=== PATIENT | male | born 1995 | race Caucasian/White ===

== ENCOUNTER → 2016-11-19 | Outpatient (CLI) | payer MEDICAID ==
[2016-11-19 17:58] LABS: ABSOLUTE BASOPHILS # (AUTO) 0.1 10^3/uL (0.0-0.2); ABSOLUTE EOSINOPHILS # (AUTO) 0.3 10^3/uL (0.0-0.6); ABSOLUTE LYMPHOCYTES (AUTO) 2.4 10^3/uL (0.5-4.7); ABSOLUTE MONOCYTES (AUTO) 1.2 10^3/uL (0.1-1.4); ABSOLUTE NEUT (AUTO) 8.6 10^3/uL (1.7-8.2); BASOPHILS % (AUTO) 0.5 % (0-2); EOSINOPHILS % (AUTO) 2.1 % (0-6); HEMATOCRIT 42.2 % (37.9-51.0); HEMOGLOBIN 14.9 g/dL (13.5-17.0); HGB HCT DIFFERENCE 2.5; LYMPHOCYTES % (AUTO) 18.9 % (13-45); MEAN CORPUSCULAR HEMOGLOBIN 29.3 pg (27.0-33.4); MEAN CORPUSCULAR HGB CONC 35.2 g/dL (32.0-36.0); MEAN CORPUSCULAR VOLUME 83 fl (80-97); MONOCYTES % (AUTO) 9.7 % (3-13); RED BLOOD COUNT 5.09 10^6/uL (4.35-5.55); RED CELL DISTRIBUTION WIDTH 13.3 % (11.5-14.0); SEGMENTED NEUTROPHILS % (AUTO) 68.8 % (42-78); WHITE BLOOD COUNT 12.5 10^3/uL (4.0-10.5)
[2016-11-19 18:22] LABS: ALANINE AMINOTRANSFERASE 75 U/L (21-72); ALBUMIN 4.1 g/dL (3.5-5.0); ALKALINE PHOSPHATASE 47 U/L (38-126); ANION GAP 9 (5-19); ASPARTATE AMINO TRANSFERASE 31 U/L (17-59); BILIRUBIN,TOTAL 0.3 mg/dL (0.2-1.3); BLOOD UREA NITROGEN 24 mg/dL (7-20); CALCIUM 9.2 mg/dL (8.4-10.2); CARBON DIOXIDE 33 mmol/L (22-30); CHLORIDE 99 mmol/L (98-107); CREATININE RESULT 1.12 mg/dL (0.52-1.25); GLUCOSE 82 mg/dL (75-110); SODIUM 140.7 mmol/L (137-145); TOTAL PROTEIN 6.8 g/dL (6.3-8.2)
[2016-11-19 18:27] LABS: VALPROIC ACID 19.6 ug/mL (50.0-120.0)
== END ==
LOC: LAB 17:31
DX: F25.9 Schizoaffective disorder, unspecified (principal)
CPT/HCPCS: 36415; 80053; 80164; 84436; 84443; 85025

== ENCOUNTER 2016-12-30 06:24 | Emergency (ER) | payer MEDICAID ==
[2016-12-30 07:12] LABS: ABSOLUTE BASOPHILS # (AUTO) 0.1 10^3/uL (0.0-0.2); ABSOLUTE MONOCYTES (AUTO) 1.3 10^3/uL (0.1-1.4); ABSOLUTE NEUT (AUTO) 15.5 10^3/uL (1.7-8.2); BASOPHILS % (AUTO) 0.4 % (0-2); HEMATOCRIT 44.9 % (37.9-51.0); HEMOGLOBIN 15.7 g/dL (13.5-17.0); HGB HCT DIFFERENCE 2.2; LYMPHOCYTES % (AUTO) 5.6 % (13-45); MEAN CORPUSCULAR HEMOGLOBIN 29.2 pg (27.0-33.4); MEAN CORPUSCULAR HGB CONC 34.9 g/dL (32.0-36.0); MEAN CORPUSCULAR VOLUME 84 fl (80-97); MONOCYTES % (AUTO) 7.5 % (3-13); RED BLOOD COUNT 5.37 10^6/uL (4.35-5.55); SEGMENTED NEUTROPHILS % (AUTO) 86.5 % (42-78)
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
[2016-12-30 07:29] LABS: ALANINE AMINOTRANSFERASE 35 U/L (21-72); ALBUMIN 5.3 g/dL (3.5-5.0); ALKALINE PHOSPHATASE 66 U/L (38-126); ANION GAP 12 (5-19); ASPARTATE AMINO TRANSFERASE 29 U/L (17-59); BILIRUBIN,TOTAL 0.9 mg/dL (0.2-1.3); BLOOD UREA NITROGEN 17 mg/dL (7-20); CALCIUM 10.3 mg/dL (8.4-10.2); CARBON DIOXIDE 27 mmol/L (22-30); CHLORIDE 101 mmol/L (98-107); CREATININE RESULT 1.12 mg/dL (0.52-1.25); GLUCOSE 91 mg/dL (75-110); POTASSIUM 4.1 mmol/L (3.6-5.0); SODIUM 140.1 mmol/L (137-145); TOTAL PROTEIN 8.1 g/dL (6.3-8.2)
[2016-12-30 07:30] LABS: ALCOHOL < 10 mg/dL (NONE DETECTED)
[2016-12-30 08:11] LABS: APPEARANCE,URINE SLIGHTLY-CLOUDY; BILIRUBIN,URINE NEGATIVE (NEGATIVE); GLUCOSE, URINE 50 mg/dL (NEGATIVE); KETONES,URINE 20 mg/dL (NEGATIVE); LEUKOCYTE ESTERASE,URINE NEGATIVE (NEGATIVE); NITRITE,URINE NEGATIVE (NEGATIVE); PROTEIN,URINE 30 mg/dL (NEGATIVE); URINE SPECIFIC GRAVITY 1.023; UROBILINOGEN,URINE NEGATIVE mg/dL (<2.0)
[2016-12-30 08:25] LABS: URINE BARBITURATES SCREEN NEGATIVE; URINE METHADONE SCREEN NEGATIVE; URINE OPIATES LOW NEGATIVE; URINE PHENCYCLIDINE SCREEN NEGATIVE
--- NOTE | 2016-12-30 12:52 | EKG REPORT ---
SEVERITY:- ABNORMAL ECG - SINUS RHYTHM PROBABLE RIGHT VENTRICULAR HYPERTROPHY ST ELEV, PROBABLE NORMAL EARLY REPOL PATTERN : Confirmed by: Angela Villalta 30-Dec-2016 12:51:55
[2016-12-30] MEDS ORDERED: IBUPROFEN 600 MG TABLET PO ONE (14:41)
[2016-12-30] MEDS ORDERED: HALOPERIDOL DECANOATE INJ 100 MG/1 ML VIAL IM STA (16:08)
[2016-12-30] MEDS ORDERED: HALOPERIDOL DECANOATE INJ 100 MG/1 ML VIAL IM ONE (17:00)
[2016-12-30] MEDS: BENZTROPINE MESYLATE 1 MG TABLET PO SCH (17:05)
[2016-12-30] MEDS: HALOPERIDOL 5 MG TABLET PO SCH (17:05)
[2016-12-31] MEDS ORDERED: LORAZEPAM INJ 2 MG/1 ML VIAL IM ONE (06:06)
[2016-12-31] MEDS: BENZTROPINE MESYLATE 1 MG TABLET PO SCH (10:53)
[2016-12-31] MEDS: HALOPERIDOL 5 MG TABLET PO SCH (10:53)
--- NOTE | 2016-12-31 13:18 | PSYCHOLOGICAL NOTE ---
Psych Note - Psych Note Psych Note: Patient presented to [facility] ED for a psych evaluation. Patient was dropped off at [facility] ED by his father. Patient states that he was running through the night from people that are coming after him. Patient states they are coming after him on Facebook. Patient states he was "running last night through [employer]," and he was knocking on doors to find help. Patient states his mother lives in [facility] and he ran to his dads house across [facility]. Patient disclosed that people are after him. He states that they're going to get him and then proceeded to point out in the rudd used his other hand to gesture cutting off the head on his neck and then put his finger to his lips in the motion of quiet or silence. Patient is demonstrating being actively in his psychosis. Patient states that he will take his medication is the clinician requests clinician attempted to conduct psychoeducation for understanding consistency and medication; it is unclear at this time if the patient is able to cognitively understand this. Patient's mother states the patient has not been taking his medications correctly. Clinician notes patient's mother showed the patient's pro-box and notes some days are empty summer with random numbers of medications in them. She states that sometimes he takes all of them were just one or 2 or none. Patient is alert and orientated to person and place. Mood is guarded with restricted affect. Patient denies suicidal homicidal ideation. Patient is demonstrating auditory and visual hallucinations; persecutory delusions. Thought process is disorganized. Conversational speech is within normal rate tone and prosody however at times stops talking and mindless words. Patient's eye contact was good. Intellectual abilities are between average range. Attention and concentration are poor. Insight, judgment, impulse control are poor. 295.70 (F25.0) Schizoaffective Disorder; Bipolar type per history disclosed by patient Impression\\plan: Patient is recommended to continue under IVC. Patient is currently an acute psychosis that is impairing his cognitive functioning. Patient has a history of engaging in dangerous acts while in psychosis such as running in traffic. Patient is recommended for inpatient treatment. Dr. Pratt was consulted on care and management of this patient; attending physician is in agreement with recommendations and disposition.
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
[2016-12-31 15:12] VITALS: BP 118/72
== END 2016-12-31 15:10 ==
LOC: ER 06:24
DX: F22 Delusional disorders (principal); R51 Headache; D72.829 Elevated white blood cell count, unspecified; F17.200 Nicotine dependence, unspecified, uncomplicated; Z79.899 Other long term (current) drug therapy
CPT/HCPCS: 93005; 99285; 96372; 96374; 36415; 80307 ×4; 85025; 80053; 81001; 93010; J3490 ×5; J1631; J2060

== ENCOUNTER 2017-02-05 17:31 | Emergency (ER) | payer MEDICAID, OTHER ==
--- NOTE | 2017-02-05 17:38 | ER Document Report ---
ED Medical Screen (RME) - General Stated Complaint: URINARY PAIN Mode of Arrival: Ambulatory Information source: Patient Notes: pt presents to the ED for bilateral flank pain and penile discoloration for 3 weeks. Denies testicular pain, denies area itchy, denies pain with void. Denies trauma, denies f/v//d. I have greeted and performed a rapid initial assessment of this patient. A comprehensive ED assessment and evaluation of the patient, analysis of test results and completion of the medical decision making process will be conducted by additional ED providers. TRAVEL OUTSIDE OF THE [place] IN LAST 30 DAYS: No - Related Data Allergies/Adverse Reactions: No Known Allergies Allergy (Verified 04/06/16 13:43) Past Medical History Pulmonary Medical History: Reports: Hx Asthma - as a child Renal/ Medical History: Denies: Hx Peritoneal Dialysis - Immunizations Hx Diphtheria, Pertussis, Tetanus Vaccination: No
[2017-02-05 18:02] LABS: APPEARANCE,URINE CLEAR; BILIRUBIN,URINE NEGATIVE (NEGATIVE); GLUCOSE, URINE NEGATIVE (NEGATIVE); KETONES,URINE NEGATIVE (NEGATIVE); LEUKOCYTE ESTERASE,URINE NEGATIVE (NEGATIVE); NITRITE,URINE NEGATIVE (NEGATIVE); PROTEIN,URINE NEGATIVE (NEGATIVE); URINE SPECIFIC GRAVITY 1.029; UROBILINOGEN,URINE NEGATIVE mg/dL (<2.0)
[2017-02-05 19:43] LABS: CHLAM PCR NOT DETECTED (NOT DETECT)
[2017-02-05] MEDS ORDERED: AZITHROMYCIN 250 MG TABLET PO ONE (20:11)
--- NOTE | 2017-02-05 20:21 | ER Document Report ---
ED GI/ - General Chief Complaint: Penile Pain Stated Complaint: URINARY PAIN Mode of Arrival: Ambulatory Information source: Patient Notes: 21 y/o M presents to ED c/o intermittently persistent episodes of lower back pain over the last 3 weeks. Reports works at fast[employer] and is on his feet for extended periods of time and does repetitive bending and twisting. Denies trauma, fall or obvious injury, extremity weakness/numbness/tingling, saddle numbness, or incontinence. States pain is achy to bilateral lower back worse at the end of his work day. Also c/o intermittent dysuria over the last month with associated dryness and irritation to glans penis. Denies itching or pain. States feels similar to when he was diagnosed and treated for chlamydia last year. States is in monogamous relationship with female significant other. Denies fever, hematuria, testicular pain or swelling, n/v. TRAVEL OUTSIDE OF THE [place] IN LAST 30 DAYS: No - HPI Quality of pain: Achy Severity at maximum: Moderate Severity in ED: None Similar symptoms previously: Yes Recently seen / treated by doctor: No - Related Data Allergies/Adverse Reactions: No Known Allergies Allergy (Verified 02/05/17 17:37) Past Medical History - General Information source: Patient - Social History Smoking Status: Never Smoker Chew tobacco use (# tins/day): No Frequency of alcohol use: None Drug Abuse: None Lives with: Family Family History: None Pulmonary Medical History: Reports: Hx Asthma - as a child Renal/ Medical History: Denies: Hx Peritoneal Dialysis Psychiatric Medical History: Reports: Hx Schizoaffective Disorder Surgical Hx: Negative - Immunizations Hx Diphtheria, Pertussis, Tetanus Vaccination: Yes Review of Systems - Review of Systems Constitutional: No symptoms reported EENT: No symptoms reported Cardiovascular: No symptoms reported Respiratory: No symptoms reported Gastrointestinal: No symptoms reported Genitourinary: See HPI Male Genitourinary: See HPI Musculoskeletal: See HPI Skin: No symptoms reported Hematologic/Lymphatic: No symptoms reported Neurological/Psychological: No symptoms reported -: Yes All other systems reviewed and negative Physical Exam - Vital signs Vitals: Temp Pulse Resp BP Pulse Ox 98.8 F 69 18 102/63 95 02/05/17 17:35 02/05/17 17:35 02/05/17 17:35 02/05/17 17:35 02/05/17 17:35 Interpretation: Normal - General General appearance: Appears well, Alert In distress: None - HEENT Head: Normocephalic, Atraumatic Eyes: Normal Pupils: PERRL - Respiratory Respiratory status: No respiratory distress Chest status: Nontender Breath sounds: Normal Chest palpation: Normal - Cardiovascular Rhythm: Regular Heart sounds: Normal auscultation Murmur: No Pulses: Normal: Radial Normal capillary refill: Yes - Abdominal Inspection: Normal Distension: No distension Bowel sounds: Normal Tenderness: Nontender Organomegaly: No organomegaly - Genitourinary Inspection: Normal, Other - Uncircumcised male. No swelling, erythema, discharge , or tenderness.. No: Blood at meatus, Penile discharge Tenderness: Nontender. No: Lesions, Testicle tender, Epididymis tender Cremasteric reflex: Normal Scrotum: Normal. No: Swelling, Redness, Hot to touch - Back Back: Normal, Nontender. No: Tender, Deformity/step-off, CVA tenderness, Vertebra tenderness, Scars, Scoliosis, Wounds, Other - Extremities General upper extremity: Normal inspection, Nontender, Normal color, Normal ROM , Normal strength, Normal temperature. No: Tender, Edema General lower extremity: Normal inspection, Nontender, Normal color, Normal ROM , Normal strength, Normal temperature, Normal weight bearing. No: Tender, Edema - Neurological Neuro grossly intact: Yes Cognition: Normal Orientation: AAOx4 Amalia Coma Scale Eye Opening: Spontaneous [place]alia Coma Scale Verbal: Oriented [place] Coma Scale Motor: Obeys Commands [place] Coma Scale Total: 15 Speech: Normal Motor strength normal: LUE, RUE, LLE, RLE Sensory: Normal - Psychological Associated symptoms: Normal affect, Normal mood - Skin Skin Temperature: Warm Skin Moisture: Dry Skin Color: Normal Course - Re-evaluation Re-evalutation: 02/05/17 20:26 Patient hemodynamically stable, in no distress, afebrile. UA and Chlamydia/ gonorrhea unremarkable. Urine culture obtained. Will treat for nonspecific urethritis at this time. No suggestion of emergent or viral/fungal at this time. Patient appears stable for discharge and agrees with home care, follow- up with PCP, and ED return precautions. - Vital Signs Vital signs: Temp Pulse Resp BP Pulse Ox 97.7 F 58 L 18 128/58 H 98 02/05/17 20:42 02/05/17 20:42 02/05/17 17:35 02/05/17 20:42 02/05/17 20:42 Discharge - Discharge Clinical Impression: Nonspecific urethritis Condition: Stable Disposition: HOME, SELF-CARE Instructions: Urethritis ([facility]), Azithromycin ([facility]), Low Back Pain ([facility]), Acetaminophen, Use of [id number] Ibuprofen ([facility]) Additional Instructions: A culture of your urine has been obtained. If bacterial growth is noted that requires additional antibiotic treatment you will be contacted within 2 days with instructions on treatment. If you do not receive a call, please call back for results. Follow-up with your primary care provider this week. Return to the Emergency Department for any persistent or worsening symptoms or any concerns.
[2017-02-05 20:46] VITALS: BP 128/58
== END 2017-02-05 20:42 | disposition home or self-care (01) ==
LOC: ER 17:31
DX: N34.2 Other urethritis (principal); N48.89 Other specified disorders of penis
CPT/HCPCS: 99283; 87086; 81001; 87491; 87591; Q0144

== ENCOUNTER 2017-07-16 05:19 | Emergency (ER) | payer SELFPAY ==
[2017-07-16 06:11] LABS: ALANINE AMINOTRANSFERASE 36 U/L (21-72); ALBUMIN 4.7 g/dL (3.5-5.0); ALCOHOL < 10 mg/dL (NONE DETECTED); ALKALINE PHOSPHATASE 65 U/L (38-126); ANION GAP 13 (5-19); ASPARTATE AMINO TRANSFERASE 54 U/L (17-59); BILIRUBIN,DIRECT 0.3 mg/dL (0.0-0.4); BILIRUBIN,TOTAL 0.8 mg/dL (0.2-1.3); BLOOD UREA NITROGEN 20 mg/dL (7-20); CALCIUM 10.1 mg/dL (8.4-10.2); CARBON DIOXIDE 26 mmol/L (22-30); CHLORIDE 103 mmol/L (98-107); CREATININE RESULT 1.17 mg/dL (0.52-1.25); GLUCOSE 127 mg/dL (75-110); POTASSIUM 3.8 mmol/L (3.6-5.0); TOTAL PROTEIN 7.5 g/dL (6.3-8.2)
[2017-07-16 06:28] LABS: ABSOLUTE BASOPHILS # (AUTO) 0.1 10^3/uL (0.0-0.2); ABSOLUTE LYMPHOCYTES (AUTO) 1.3 10^3/uL (0.5-4.7); ABSOLUTE MONOCYTES (AUTO) 1.7 10^3/uL (0.1-1.4); ABSOLUTE NEUT (AUTO) 14.4 10^3/uL (1.7-8.2); BASOPHILS % (AUTO) 0.3 % (0-2); HEMATOCRIT 42.5 % (37.9-51.0); HEMOGLOBIN 14.9 g/dL (13.5-17.0); HGB HCT DIFFERENCE 2.2; LYMPHOCYTES % (AUTO) 7.4 % (13-45); MEAN CORPUSCULAR HEMOGLOBIN 29.1 pg (27.0-33.4); MEAN CORPUSCULAR VOLUME 83 fl (80-97); MONOCYTES % (AUTO) 9.6 % (3-13); RED BLOOD COUNT 5.12 10^6/uL (4.35-5.55); RED CELL DISTRIBUTION WIDTH 13.1 % (11.5-14.0); SEGMENTED NEUTROPHILS % (AUTO) 82.7 % (42-78); WHITE BLOOD COUNT 17.5 10^3/uL (4.0-10.5)
[2017-07-16 06:41] LABS: APPEARANCE,URINE SLIGHTLY-CLOUDY; BILIRUBIN,URINE NEGATIVE (NEGATIVE); GLUCOSE, URINE NEGATIVE (NEGATIVE); KETONES,URINE 20 mg/dL (NEGATIVE); LEUKOCYTE ESTERASE,URINE NEGATIVE (NEGATIVE); NITRITE,URINE NEGATIVE (NEGATIVE); PROTEIN,URINE 30 mg/dL (NEGATIVE); URINE SPECIFIC GRAVITY 1.031; UROBILINOGEN,URINE NEGATIVE mg/dL (<2.0)
[2017-07-16 06:49] LABS: URINE BARBITURATES SCREEN NEGATIVE; URINE METHADONE SCREEN NEGATIVE; URINE OPIATES LOW NEGATIVE; URINE PHENCYCLIDINE SCREEN NEGATIVE
--- NOTE | 2017-07-16 07:09 | ER Document Report ---
ED Psych Disorder / Suicide - HPI Suicide Risk Factors: Male, Schizophrenia - Schizoaffective Disorder, Bipolar Type, Substance abuse Normal mood: No Associated symptoms: Anxious, Manic, Paranoid Similar symptoms previously: Yes Recently seen / treated by doctor: Yes <QUANG PRADO - Last Filed: 07/16/17 09:59> - General TRAVEL OUTSIDE OF THE [place] IN LAST 30 DAYS: No <REENA SHELTON - Last Filed: 07/16/17 10:39> - General Chief Complaint: Psych Problem Stated Complaint: PSYCH EVAL Time Seen by Provider: 07/16/17 06:01 Notes: The patient is a 21-year-old male, past medical history schizoaffective disorder , presents by EMS and police after he was found running around naked in the rain. Patient said that he has not taken his Risperdal for the past week and he smoked weed that may have been laced with something. Dad said that he had similar symptoms after smoking read from a new dealer in the past. Patient denies chest pain, shortness of breath, blurry vision, numbness, tingling, suicidal ideation, homicidal ideation or fevers. (REENA SHELTON) - HPI Notes: Patient is a 21 year old male who presents via EMS early this morning after he was found in the rain, naked by KAREN. Patient is diagnosed with Schizoaffective Disorder, per history and reportedly stopped his Risperdal x1week. Patient this morning denies suicidal ideations. Patient states he wants to make sure he is alright and is concerned for his wellbeing. Patient does present with paranoia and asks if he is being monitored by cameras, if his information is private, etc. Patient's parents are bedside and he does provide verbal consent to speak with and in front of his parents. Patient states he smoked marijuana he thinks was laced with something. Father states he is not concerned for the patient and states the patient had not slept in a number of days. Father states the patient needs to stop hanging out with "bad apples," not do drugs, and stay off his phone/social media. Father states the patient has not had an episode in about a year, and states overall he has been doing well. Father states he would prefer the patient return home so he can sleep. Patient and A&O to name and location. Mood is anxious with congruent affect. Patient denies suicidal/homicidal ideations, intent, plan, or means. Patient denies A/V H; paranoia was noted. Thought processes were focused on his laced marijuana. Conversational speech was WNL for rate, tone, and prosody. Intellectual abilities were estimated to be under the influence. Attention and focus were poor. Insight, judgment, and impulse control were poor. Schizoaffective Disorde, Bipolar Type, per history R/O Polysubstance Use Disorder Patient is psychiatrically cleared for discharge. Patient's parents are bedside and report they prefer he return home for sleep. Patient and father provided psychoeducation regarding drug use, compliance with medication regimen , etc. Note, father does not appear to accept the psychosis related diagnosis. Patient encouraged to follow up with his psychiatric provider. I consulted with Dr. Pratt in regards to the care and management of this patient. Note, per pharmacy, patient has not filled his prescriptions since January 2017. (QUANG PRADO) - Related Data Allergies/Adverse Reactions: No Known Allergies Allergy (Verified 02/05/17 17:37) Home Medications: Current Home Medications No Home Medications 07/16/17 [History] Past Medical History - General Information source: Law Enforcement, [facility] Records <QUANG PRADO - Last Filed: 07/16/17 09:59> - General Information source: Patient, Parent - Social History Smoking Status: Current Every Day Smoker Chew tobacco use (# tins/day): No Frequency of alcohol use: None Drug Abuse: Cocaine, Marijuana Family History: None Pulmonary Medical History: Reports: Hx Asthma - as a child Renal/ Medical History: Denies: Hx Peritoneal Dialysis Psychiatric Medical History: Reports: Hx Schizoaffective Disorder - Immunizations Hx Diphtheria, Pertussis, Tetanus Vaccination: Yes <REENA SHELTON - Last Filed: 07/16/17 10:39> Review of Systems <QUANG PRADO - Last Filed: 07/16/17 09:59> <REENA SHELTON - Last Filed: 07/16/17 10:39> - Review of Systems Notes: REVIEW OF SYSTEMS: CONSTITUTIONAL: -fevers, -chills EENT: -eye pain, -difficulty swallowing, -nasal congestion CARDIOVASCULAR:-chest pain, -syncope. RESPIRATORY: -cough, -SOB GASTROINTESTINAL: -abdominal pain, - nausea, -vomiting, -diarrhea GENITOURINARY: -dysuria, -hematuria MUSCULOSKELETAL: -back pain, -neck pain SKIN: -rash or skin lesions. HEMATOLOGIC: -easy bruising or bleeding. LYMPHATIC: -swollen, enlarged glands. NEUROLOGICAL: +altered mental status, -headache, -neurologic symptoms PSYCHIATRIC: -anxiety, -depression, +agitation ALL OTHER SYSTEMS REVIEWED AND NEGATIVE. (REENA SHELTON) Physical Exam <QUANG PRADO - Last Filed: 07/16/17 09:59> <ERENA SHELTON - Last Filed: 07/16/17 10:39> - Vital signs Vitals: Temp Pulse Resp BP Pulse Ox 99.4 F 111 H 20 127/79 H 96 07/16/17 05:30 07/16/17 05:30 07/16/17 05:30 07/16/17 05:30 07/16/17 05:30 - Notes Notes: PHYSICAL EXAMINATION: GENERAL: Well-appearing, well-nourished and in no acute distress. HEAD: Atraumatic, normocephalic. EYES: Pupils equal round and reactive to light, extraocular movements intact, sclera anicteric, conjunctiva are normal. ENT: nares patent, oropharynx clear without exudates. Moist mucous membranes. NECK: Normal range of motion, supple without lymphadenopathy LUNGS: Breath sounds clear to auscultation bilaterally and equal. No wheezes rales or rhonchi. HEART: Tachycardic ABDOMEN: Soft, nontender, normoactive bowel sounds. No guarding, no rebound. No masses appreciated. EXTREMITIES: Normal range of motion, no pitting or edema. No cyanosis. NEUROLOGICAL: Cranial nerves grossly intact. Normal speech, normal gait. Normal sensory and motor exams. PSYCH: Normal mood, normal affect, cooperative on my evaluation SKIN: Warm, Dry, normal turgor, no rashes or lesions noted. (REENA SHELTON) Course - Laboratory Result Diagrams: 07/16/17 06:15 07/16/17 05:35 <QUANG PRADO - Last Filed: 07/16/17 09:59> - Laboratory Result Diagrams: 07/16/17 06:15 07/16/17 05:35 <REENA SHELTON - Last Filed: 07/16/17 10:39> - Re-evaluation Re-evalutation: 07/16/17 07:16 Pt is in room with his dad. He admits that his last Risperdal dose was 1 week ago and that he smoked weed that may have been laced with something. He did not mention that he used cocaine. Patient's labs are unremarkable, other than a leukocytosis, which may be demargination from his agitation earlier today. No signs of infection or meningitis at this time. Patient and dad are agreeable to speak to mental health. 07/16/17 10:38 Pt seen and evaluated by mental health. Provided outpatient resources. No IVC criteria at this time. Parents and patient are comfortable with plan. Emphasized to patient to never use drugs again. (REENA SHELTON) - Vital Signs Vital signs: Temp Pulse Resp BP Pulse Ox 97.9 F 90 20 127/64 H 98 07/16/17 08:00 07/16/17 07:56 07/16/17 07:56 07/16/17 07:56 07/16/17 07:56 - Laboratory Laboratory results interpreted by me: 07/16/17 07/16/17 07/16/17 05:35 06:15 06:15 WBC 17.5 H Seg Neutrophils % 82.7 H Lymphocytes % 7.4 L Absolute Neutrophils 14.4 H Absolute Monocytes 1.7 H Glucose 127 H Urine Protein 30 H Urine Ketones 20 H Salicylates < 1.0 L Acetaminophen < 10 L Discharge <QUANG PRADO - Last Filed: 07/16/17 09:59> <REENA SHELTON - Last Filed: 07/16/17 10:39> - Discharge Clinical Impression: Agitation, Polysubstance abuse Condition: Stable Disposition: HOME, SELF-CARE Additional Instructions: Cocaine Abuse Cocaine causes many dangerous medical problems. Problems can occur even with "usual" amounts. Cocaine affects judgement, creating a sense of invulnerability. Cocaine users often make bad decisions that seem "great" at the time. Most cocaine users eventually will be hurt by bad job performance, damaged personal relations, crime, and unsafe sexual practices. Toxic effects of cocaine can include seizures, hallucinations, delusions, high blood pressure, heart damage, or sudden . There's always the risk of a "bad batch." But heart attacks, brain hemorrhages, or cardiac arrest can occur unpredictably even with "normal" use. Injection of cocaine is risky for abscesses, endocarditis (heart infection) , pneumonia, and AIDS. Withdrawal from cocaine often causes anxiety and drug cravings. Some users become paranoid and psychotic. Many treatment programs are available, but you must make the decision to quit. Medication can be prescribed to control the symptoms of cocaine toxicity (beta blockers or benzodiazepines). Withdrawal symptoms may require tranquilizers. Schizophrenia Schizophrenia is a chemical disorder that affects how the brain functions. The exact cause is unknown, but it tends to run in families. It is NOT caused by emotional trauma. Schizophrenia causes disordered thinking, including unusual beliefs and inability to "process" happenings around the patient. Patients with schizophrenia benefit greatly from medicine. These medicines are called antipsychotics. Never stop the medicine without the doctor 's approval. Counselling may help the patient deal with his disease. Schizophrenics require a very ordered environment. Stresses and sudden changes may bring out symptoms. Drugs and alcohol abuse may become problems. Contact the counsellor or crisis line if there are thoughts of suicide or of harming others, or if you become aware of unusual thoughts or beliefs. Please take your medications as prescribed. Please do not use drugs. Please follow up with your provider this week to resume medications. Referrals: [facility] [Provider Group] - Follow up in 3-5 days
[2017-07-16 10:42] VITALS: BP 129/77
--- NOTE | 2017-07-16 14:01 | EKG REPORT ---
SEVERITY:- NORMAL ECG - SINUS RHYTHM : Confirmed by: Angela Villalta 16-Jul-2017 14:01:00
== END 2017-07-16 10:49 | disposition home or self-care (01) ==
LOC: ER 05:19
DX: F19.90 Other psychoactive substance use, unspecified, uncomplicated (principal); R45.1 Restlessness and agitation; F17.200 Nicotine dependence, unspecified, uncomplicated
CPT/HCPCS: 36415; 80053; 80307; 81001; 85025; 93005; 93010; 99284

== ENCOUNTER 2017-07-16 16:28 | Emergency (ER) | payer SELFPAY ==
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
[2017-07-16 17:49] VITALS: BP 122/76
== END 2017-07-16 17:49 ==
LOC: ER 16:28
DX: S00.83XA Contusion of other part of head, initial encounter (principal); S70.11XA Contusion of right thigh, initial encounter; Y04.2XXA Assault by strike against or bumped into by another person, initial encounter
CPT/HCPCS: 99283

== ENCOUNTER 2018-01-15 13:07 | Emergency (ER) | payer SELFPAY ==
[2018-01-15 13:15] VITALS: BP 118/69
--- NOTE | 2018-01-15 14:02 | ER Document Report ---
HPI - HPI Patient complains to provider of: Medication refill Onset: This afternoon Quality of pain: No pain Pain Level: 0 Context: Patient was recently discharged today from [facility] and needs a refill of his prescription for Zyprexa. Patient has been on this medication for 6 months. Patient plans to go to an outpatient rehab facility tomorrow and the staff there are requesting that patient get his medications refilled prior to his arrival. Patient and his father feel that his Zyprexa dose may be too high as he seems to be very tired, and they are worried that he may be overmedicated. Patient denies any suicidal or homicidal ideation. Patient denies any recreational drug use. Patient denies any visual or auditory hallucinations. Associated Symptoms: None Exacerbated by: Denies Relieved by: Denies Similar symptoms previously: No Recently seen / treated by doctor: No - ROS ROS below otherwise negative: Yes Systems Reviewed and Negative: Yes All other systems reviewed and negative - CONSTITUTIONAL Constitutional: DENIES: Fever - NEURO Neurology: DENIES: Headache, Weakness - CARDIOVASCULAR Cardiovascular: DENIES: Chest pain - RESPIRATORY Respiratory: DENIES: Coughing - GASTROINTESTINAL Gastrointestinal: DENIES: Nausea, Patient vomiting - DERM Skin Color: Normal Skin Problems: None Past Medical History - General Information source: Patient, Parent - Social History Smoking Status: Never Smoker Frequency of alcohol use: None Drug Abuse: None Lives with: Family Family History: None Pulmonary Medical History: Reports: Hx Asthma - as a child Renal/ Medical History: Denies: Hx Peritoneal Dialysis Psychiatric Medical History: Reports: Hx Schizoaffective Disorder Surgical Hx: Negative - Immunizations Hx Diphtheria, Pertussis, Tetanus Vaccination: Yes Vertical Provider Document - CONSTITUTIONAL Agree With Documented VS: Yes Exam Limitations: No Limitations General Appearance: WD/WN, No Apparent Distress - INFECTION CONTROL TRAVEL OUTSIDE OF THE [place] IN LAST 30 DAYS: No - HEENT HEENT: Atraumatic, Normocephalic - NECK Neck: Normal Inspection, Supple - RESPIRATORY Respiratory: Breath Sounds Normal, No Respiratory Distress O2 Sat by Pulse Oximetry: 98 - CARDIOVASCULAR Cardiovascular: Regular Rate, Regular Rhythm - BACK Back: Normal Inspection - MUSCULOSKELETAL/EXTREMETIES Musculoskeletal/Extremeties: MAEW - NEURO Level of Consciousness: Awake, Alert, Appropriate Motor/Sensory: No Motor Deficit - DERM Integumentary: Warm, Dry Course - Re-evaluation Re-evalutation: 01/15/18 14:[address] Jack regarding patient presentation. Recommends consultation with no health team. Does not advise writing longer than a 10 day supply of the medication 01/15/18 14:42 After consultation with mental health team is advised that patient's dose be changed to Zyprexa 5 mg twice a day with Cogentin 1 mg daily. - Vital Signs Vital signs: Temp Pulse Resp BP Pulse Ox 98.6 F 79 17 118/69 98 01/15/18 13:14 01/15/18 13:14 01/15/18 13:14 01/15/18 13:14 01/15/18 13:14 Discharge - Discharge Clinical Impression: History of schizoaffective disorder Condition: Stable Disposition: HOME, SELF-CARE Additional Instructions: Return immediately for any new or worsening symptoms Followup with your primary care provider, call tomorrow to make a followup appointment Follow-up with a mental health provider for refill of your medications. Prescriptions: Benztropine Mesylate 1 mg PO DAILY #7 tablet Olanzapine [Zyprexa 5 mg Tablet] 5 mg PO Q12 #14 tablet Referrals: [facility] [Provider Group] - Follow up as needed [facility] [Provider Group] - Follow up as needed
== END 2018-01-15 15:03 | disposition home or self-care (01) ==
LOC: ER 13:07
DX: Z76.0 Encounter for issue of repeat prescription (principal); F25.9 Schizoaffective disorder, unspecified; Z79.899 Other long term (current) drug therapy; J45.909 Unspecified asthma, uncomplicated
CPT/HCPCS: 99281